=== PATIENT | female | born 1990 | race Hispanic/Latino ===

== ENCOUNTER 2019-01-10 16:48 | Observation (INO) | payer BC, SELFPAY ==
[2019-01-10] MEDS ORDERED: PROMETHAZINE 25 MG/ML VIAL ONE (17:13)
[2019-01-10] MEDS ORDERED: NA CHLORIDE 0.9% 1,000 ML ONE ×2 (17:14→17:51)
[2019-01-10] MEDS ORDERED: ONDANSETRON 4 MG/2 ML VIAL ONE ×2 (17:17→21:01)
[2019-01-10 17:22] LABS: Urine Blood 2+ (NEG); Urine Glucose NEGATIVE (NEG); Urine Protein 2+ (NEG); Urine pH 5.5 (5.0-7.0)
[2019-01-10 17:35] LABS: Absolute Lymphocytes (CBC) 1.2 K/uL (0.7-4.9); Basophils % 0.2 % (0-1.3); Hematocrit 39.4 % (36.0-45.0); Lymphocytes % 10.1 % (15.3-44.8); MPV 9.5 fL (7.6-11.3); RBC Red Blood Cell Count 4.93 M/uL (3.86-4.86)
[2019-01-10 18:05] LABS: BUN Blood Urea Nitrogen 6 mg/dL (7-18); Bicarbonate 23 mmol/L (21-32); Glucose Level 77 mg/dL (74-106); Sodium Level 133 mmol/L (136-145)
[2019-01-10 18:12] LABS: Potassium 2.7 mmol/L (3.5-5.1)
[2019-01-10] MEDS ORDERED: POTASSIUM 25 MEQ EFFERV TAB ONE (18:16)
[2019-01-10] MEDS ORDERED: KCL 20 MEQ/100 mL IVPB 20 MEQ/100 ML BAG IV ONE (18:17)
--- NOTE | 2019-01-10 18:46 | EDPHYS ---
Physician Documentation [facility] Name: Kourtney Zavala Age: 28 yrs Sex: Female : 1990 Arrival Date: 01/10/2019 Time: 16:50 Bed 16 Private MD: ED Physician Yuri Marcus HPI: 01/10 18:06 This 28 yrs old Female presents to ER via Ambulatory with complaints of pm1 Nausea/Vomiting - 10 wks 6 days preg. 18:06 The patient presents to the emergency department with nausea, vomiting. Onset: The pm1 symptoms/episode began/occurred 3 day(s) ago. Possible causes: . The symptoms are aggravated by food , The symptoms are alleviated by zofran, but does not have any. Associated signs and symptoms: Pertinent positives: nausea, vomiting, Pertinent negatives: abdominal pain, dysuria, fever, vaginal discharge. Severity of symptoms: in the emergency department the symptoms are worse Pain is currently a 0 / 10. The patient has not experienced similar symptoms in the past. 18:06 The patient has been recently seen by a physician: with similar presenting complaints, pm1 and apparently given a diagnosis of hypokalemia and hyperemesis gravidarum. Admitted and discharged home with Reglan. However Reglan does not help. Reports Phenergan ineffective also. . . [employer] HOOP NET: 17:09 LMP 06/2018 em Historical: - Allergies: 17:09 No Known Allergies; em - Home Meds: 17:09 None [Active]; em - PMHx: 17:09 None; em - PSHx: 17:09 right foot bone graft; em - Immunization history:: Adult Immunizations up to date. - Social history:: Smoking status: Patient/guardian denies using tobacco. - Ebola Screening: : Patient negative for fever greater than or equal to 101.5 degrees Fahrenheit, and additional compatible Ebola Virus Disease symptoms Patient denies exposure to infectious person Patient denies travel to an Ebola-affected area in the 21 days before illness onset No symptoms or risks identified at this time. ROS: 18:06 Constitutional: Negative for fever, chills, and weight loss, Eyes: Negative for injury, pm1 pain, redness, and discharge, ENT: Negative for injury, pain, and discharge, Neck: Negative for injury, pain, and swelling, Cardiovascular: Negative for chest pain, palpitations, and edema, Respiratory: Negative for shortness of breath, cough, wheezing, and pleuritic chest pain. 18:06 Back: Negative for injury and pain, : Negative for injury, bleeding, discharge, and swelling, MS/Extremity: Negative for injury and deformity, Skin: Negative for injury, rash, and discoloration, Neuro: Negative for headache, weakness, numbness, tingling, and seizure. 18:06 Abdomen/GI: Positive for abdominal pain, nausea and vomiting, Negative for diarrhea, constipation. Exam: 18:06 Constitutional: This is a well developed, well nourished patient who is awake, alert, pm1 and in no acute distress. Head/Face: Normocephalic, atraumatic. Neck: Trachea midline, no thyromegaly or masses palpated, and no cervical lymphadenopathy. Supple, full range of motion without nuchal rigidity, or vertebral point tenderness. No Meningismus. Chest/axilla: Normal chest wall appearance and motion. Nontender with no deformity. No lesions are appreciated. Cardiovascular: Regular rate and rhythm with a normal S1 and S2. No gallops, murmurs, or rubs. No pulse deficits. Respiratory: Lungs have equal breath sounds bilaterally, clear to auscultation and percussion. No rales, rhonchi or wheezes noted. No increased work of breathing, no retractions or nasal flaring. 18:06 Back: No spinal tenderness. No costovertebral tenderness. Full range of motion. Skin: Warm, dry with normal turgor. Normal color with no rashes, no lesions, and no evidence of cellulitis. MS/ Extremity: Pulses equal, no cyanosis. Neurovascular intact. Full, normal range of motion. 18:06 Abdomen/GI: Inspection: obese Bowel sounds: normal, Palpation: abdomen is soft and non-tender, in all quadrants, mass, is not appreciated, rebound tenderness, is not appreciated. 18:06 Neuro: Orientation: is normal, Motor: is normal, moves all fours, Gait: is steady, at a normal pace, without difficulty. Vital Signs: 17:09 BP 143 / 98; Pulse 97; Resp 18; Temp 98.7(O); Pulse Ox 98% on R/A; Weight 80.29 kg; em Height 5 ft. 1 in. (154.94 cm); Pain 0/10; 17:27 BP 136 / 77; em 18:10 BP 137 / 69; Pulse 83; Resp 18; Pulse Ox 99% on R/A; Pain 0/10; em 19:35 BP 136 / 81; Pulse 94; Resp 18; Pulse Ox 100% on R/A; wh 21:00 BP 135 / 82; Pulse 93; Resp 18; Pulse Ox 99% on R/A; wh 17:09 Body Mass Index 33.44 (80.29 kg, 154.94 cm) em MDM: 17:00 Patient medically screened. pm1 18:44 Data reviewed: vital signs. Data interpreted: Pulse oximetry: on room air is 99 %. pm1 Interpretation: normal. Counseling: I had a detailed discussion with the patient and/or guardian regarding: the historical points, exam findings, and any diagnostic results supporting the discharge/admit diagnosis, lab results, the need for further work-up and treatment in the hospital. 19:58 Physician consultation: Elton Coto MD was called at 18:41, was contacted at 19:58, pm1 regarding admission, patient's condition, and will see patient L\T\D tomorrow. Potassium replacement, Fluids, Potassium, Ambien 10 mg PO PRN for sleep, antiemetic, L\T\D floor. 21:09 ED course: 1/2 NS with KCL 20 mEq/L not available so changed to D5-1/2 NS with KCL 20 pm1 mEq/L at 125 ml/hr. 01/10 17:06 Order name: Basic Metabolic Panel; Complete Time: 18:22 pm1 01/10 17:06 Order name: CBC with Diff; Complete Time: 17:45 pm1 01/10 17:11 Order name: Urine Dipstick--Ancillary (enter results); Complete Time: 17:45 eb 01/10 17:11 Order name: Urine --Ancillary (enter results); Complete Time: 17:45 eb 01/10 17:06 Order name: IV Saline Lock; Complete Time: 17:26 pm1 01/10 17:06 Order name: Labs collected and sent; Complete Time: 17:26 pm1 01/10 17:06 Order name: NPO; Complete Time: 17:26 pm1 01/10 17:06 Order name: Urine Dipstick-Ancillary (obtain specimen); Complete Time: 17:26 pm1 01/10 17:07 Order name: PO challenge; Complete Time: 18:45 pm1 01/10 18:25 Order name: Heart Tones; Complete Time: 18:45 pm1 Administered Medications: 17:25 Drug: NS 0.9% 1000 ml Route: IV; Rate: 1000 ml; Site: left antecubital; em 17:26 Not Given (Other Intervention Used): Phenergan 12.5 mg IVP once ss 17:26 Drug: Zofran 4 mg Route: IVP; Site: left antecubital; ss 17:47 Follow up: Response: No adverse reaction; Nausea is decreased em 18:08 Drug: NS 0.9% 1000 ml Route: IV; Rate: 1000 ml; Site: left antecubital; em 18:24 Drug: Potassium Effervescent Tablet 50 mEq Route: PO; em 22:21 Follow up: Response: No adverse reaction wh 18:24 Drug: Potassium Chloride 20 mEq Route: IV; Rate: calculated rate; Site: left em antecubital; 21:08 Drug: Zofran 4 mg Route: IVP; Site: left antecubital; wh 22:21 Follow up: Response: No adverse reaction; Nausea is decreased wh 21:08 Not Given (Porvider changed order): NS 0.45 % with KCl 20 mEq/L 1000 ml IV at 125 ml/hr once 21:09 Drug: D5-1/2 NS with KCl 20 mEq/L 1000 ml Route: IV; Rate: 125 ml/hr; Site: left wh antecubital; Disposition: 01/11 15:36 Co-signature as Attending Physician, Yuri Marcus MD. Disposition: 01/10/19 18:45 Hospitalization ordered by Elton Coto for Observation. Preliminary diagnosis are Hyperemesis gravidarum with metabolic disturbance, Hypokalemia. - Bed [facility] for [facility]. - Status is Observation. bb - Condition is Stable. - Problem is new. - Symptoms have improved. UTI on Admission? No Signatures: Dispatcher [employer] Barb Horne RN RN dw Beni Segundo, ELECTRONIC NEWS GATHERING [employer]ERA PERSON ELECTRONIC NEWS GATHERING [employer]ER[employer] PERSON em Robyn Waldron RN RN bb Smirch, Shelby, RN RN ss Lloyd Caraballo, DIRECTOR OF GRADUATE MEDICAL EDUCATION DIRECTOR OF GRADUATE MEDICAL EDUCATION pm1 Keiry Calvert Gregory, MD MD gs Corrections: (The following items were deleted from the chart) 01/10 20:39 18:45 Hospitalization Ordered by Elton Coto MD for Observation. Preliminary dw diagnosis is Hyperemesis gravidarum with metabolic disturbance; Hypokalemia. Bed requested for Telemetry/MedSurg (observation). Status is Observation. Condition is Stable. Problem is new. Symptoms have improved. UTI on Admission? No. pm1 21:59 20:39 01/10/2019 18:45 Hospitalization Ordered by Elton Coto MD for Observation. bb Preliminary diagnosis is Hyperemesis gravidarum with metabolic disturbance; Hypokalemia. Bed requested for [facility]. Status is Observation. Condition is Stable. Problem is new. Symptoms have improved. UTI on Admission? No. dw
--- NOTE | 2019-01-10 18:46 | ER ---
Nurse's Notes [facility] Name: Kourtney Zavala Age: 28 yrs Sex: Female : 1990 Arrival Date: 01/10/2019 Time: 16:50 Bed 16 Private MD: Diagnosis: Hyperemesis gravidarum with metabolic disturbance;Hypokalemia Presentation: 01/10 17:07 Presenting complaint: Patient states: N/V since Sunday, was seen at [facility] and em admitted, discharged with Phenergan and Reglan but has not helped, denies ABD cramping, vaginal bleeding or discharge. Transition of care: patient was not received from another setting of care. Onset of symptoms was January 07, 2019. Risk Assessment: Do you want to hurt yourself or someone else? Patient reports no desire to harm self or others. Initial Sepsis Screen: Does the patient meet any 2 criteria? No. Patient's initial sepsis screen is negative. Does the patient have a suspected source of infection? No. Patient's initial sepsis screen is negative. Care prior to arrival: None. 17:07 Method Of Arrival: Ambulatory em 17:09 Acuity: SONIA 3 ss MAT TESTER: 17:09 LMP 06/2018 em Historical: - Allergies: 17:09 No Known Allergies; em - Home Meds: 17:09 None [Active]; em - PMHx: 17:09 None; em - PSHx: 17:09 right foot bone graft; em - Immunization history:: Adult Immunizations up to date. - Social history:: Smoking status: Patient/guardian denies using tobacco. - Ebola Screening: : Patient negative for fever greater than or equal to 101.5 degrees Fahrenheit, and additional compatible Ebola Virus Disease symptoms Patient denies exposure to infectious person Patient denies travel to an Ebola-affected area in the 21 days before illness onset No symptoms or risks identified at this time. Screenin:09 Abuse screen: Denies threats or abuse. Denies injuries from another. Nutritional ss screening: No deficits noted. Tuberculosis screening: Never had TB. Fall Risk None identified. Assessment: 17:08 General: Appears in no apparent distress. comfortable, Behavior is calm, cooperative, em Denies fever. Pain: Denies pain. Neuro: Level of Consciousness is awake, alert, obeys commands, Oriented to person, place, time, situation, Appropriate for age. Cardiovascular: Capillary refill < 3 seconds Patient's skin is warm and dry. Respiratory: Airway is patent Respiratory effort is even, unlabored, Respiratory pattern is regular, symmetrical. GI: Abdomen is flat, Bowel sounds present X 4 quads. Abd is soft X 4 quads Abdomen is tender to palpation in right lower quadrant and left lower quadrant Reports nausea, vomiting, Patient currently denies diarrhea. : Denies burning with urination, discharge, vaginal bleeding. Derm: Skin is intact, is healthy with good turgor, Skin is pink, warm \T\ dry. Musculoskeletal: Capillary refill < 3 seconds, Range of motion: intact in all extremities. 17:12 General: The previous assessment is accurate, call light remains within reach. 17:22 Reassessment: reports IV Phenergan does not help, provider notified, received new em orders for IV zofran. 17:50 Reassessment: Patient appears in no apparent distress at this time. Patient and/or em family updated on plan of care and expected duration. Pain level reassessed. Patient is alert, oriented x 3, equal unlabored respirations, skin warm/dry/pink. Patient states feeling better. Patient states symptoms have improved. 18:46 Reassessment: Patient appears in no apparent distress at this time. Patient and/or em family updated on plan of care and expected duration. Pain level reassessed. Patient is alert, oriented x 3, equal unlabored respirations, skin warm/dry/pink. unable to locate FHT's, provider notified, will attempt with US, tolerating PO potassium. 19:35 Reassessment: Patient appears in no apparent distress at this time. Patient and/or wh family updated on plan of care and expected duration. Pain level reassessed. Patient is alert, oriented x 3, equal unlabored respirations, skin warm/dry/pink. 20:30 Reassessment: Patient appears in no apparent distress at this time. No changes from previously documented assessment. Patient and/or family updated on plan of care and expected duration. Pain level reassessed. Patient is alert, oriented x 3, equal unlabored respirations, skin warm/dry/pink. 21:40 Reassessment: Patient appears in no apparent distress at this time. No changes from previously documented assessment. Patient and/or family updated on plan of care and expected duration. Pain level reassessed. Patient is alert, oriented x 3, equal unlabored respirations, skin warm/dry/pink. Vital Signs: 17:09 BP 143 / 98; Pulse 97; Resp 18; Temp 98.7(O); Pulse Ox 98% on R/A; Weight 80.29 kg; em Height 5 ft. 1 in. (154.94 cm); Pain 0/10; 17:27 BP 136 / 77; em 18:10 BP 137 / 69; Pulse 83; Resp 18; Pulse Ox 99% on R/A; Pain 0/10; em 19:35 BP 136 / 81; Pulse 94; Resp 18; Pulse Ox 100% on R/A; wh 21:00 BP 135 / 82; Pulse 93; Resp 18; Pulse Ox 99% on R/A; wh 17:09 Body Mass Index 33.44 (80.29 kg, 154.94 cm) em ED Course: 16:50 Patient arrived in ED. as 17:00 Lloyd Caraballo NP is PHCP. pm1 17:00 Yuri Marcus MD is Attending Physician. pm1 17:07 Beni Segundo LVN is Primary Nurse. em 17:09 Triage completed. ss 17:09 Patient has correct armband on for positive identification. Bed in low position. Call ss light in reach. 17:09 Arm band placed on. em 17:25 Initial lab(s) drawn, by fl, sent to lab. Inserted saline lock: 20 gauge in left em antecubital area, using aseptic technique. Blood collected. 18:45 Elton Coto MD is Hospitalizing Provider. pm1 20:54 No provider procedures requiring assistance completed. Patient admitted, IV remains in place. Administered Medications: 17:25 Drug: NS 0.9% 1000 ml Route: IV; Rate: 1000 ml; Site: left antecubital; em 17:26 Not Given (Other Intervention Used): Phenergan 12.5 mg IVP once ss 17:26 Drug: Zofran 4 mg Route: IVP; Site: left antecubital; ss 17:47 Follow up: Response: No adverse reaction; Nausea is decreased em 18:08 Drug: NS 0.9% 1000 ml Route: IV; Rate: 1000 ml; Site: left antecubital; em 18:24 Drug: Potassium Effervescent Tablet 50 mEq Route: PO; em 22:21 Follow up: Response: No adverse reaction 18:24 Drug: Potassium Chloride 20 mEq Route: IV; Rate: calculated rate; Site: left em antecubital; 21:08 Drug: Zofran 4 mg Route: IVP; Site: left antecubital; 22:21 Follow up: Response: No adverse reaction; Nausea is decreased 21:08 Not Given (Porvider changed order): NS 0.45 % with KCl 20 mEq/L 1000 ml IV at 125 ml/hr once 21:09 Drug: D5-1/2 NS with KCl 20 mEq/L 1000 ml Route: IV; Rate: 125 ml/hr; Site: left wh antecubital; Outcome: 18:45 Decision to Hospitalize by Provider. pm1 21:40 Admitted to L \T\ D, accompanied by tech, family with patient, via wheelchair, room 270, with chart, Report called to Colleen Duncan RN 21:40 Condition: stable 21:40 Instructed on the need for admit. 21:59 Patient left the ED. bb Signatures: Beni Segundo, TESTER SOUND TESTER SOUND Nadege Baker Brenda, RN RN bb Smirch, Shelby, RN RN ss Marinas, Patrick, NP VOLUNTEER SERVICES MANAGER pm1 Keiry Calvert
[2019-01-10] MEDS ORDERED: NA CHLORIDE 0.9% 250 ML ONE (19:38)
[2019-01-10] MEDS ORDERED: D5 0.2 NS 0 ML IV ONE (21:03)
[2019-01-10] MEDS ORDERED: D5.45NS W/KCL 20MEQ 1,000 ML IV ONE (21:04)
[2019-01-10] MEDS ORDERED: ZOLPIDEM TARTRATE 5 MG TABLET PO PRN (21:47)
[2019-01-10] MEDS ORDERED: D5.45NS W/KCL 20MEQ 20 MEQ/1,000 ML BAG IV SCH (22:00)
[2019-01-10 22:48] VITALS: O2SAT 100
[2019-01-10 22:57] VITALS: BMI 30.4
[2019-01-11] MEDS: ONDANSETRON 4 MG/2 ML VIAL IV PRN ×2 (01:10→05:15)
[2019-01-11 06:22] LABS: Absolute Lymphocytes (CBC) 2.3 K/uL (0.7-4.9); Basophils % 0.4 % (0-1.3); Hematocrit 34.3 % (36.0-45.0); Lymphocytes % 25.9 % (15.3-44.8); MPV 9.8 fL (7.6-11.3); RBC Red Blood Cell Count 4.24 M/uL (3.86-4.86)
[2019-01-11 06:39] LABS: BUN Blood Urea Nitrogen 2 mg/dL (7-18); Bicarbonate 23 mmol/L (21-32); Glucose Level 106 mg/dL (74-106); Potassium 3.1 mmol/L (3.5-5.1); Sodium Level 137 mmol/L (136-145)
[2019-01-11 09:08] VITALS: BP 144/74; TEMP 99.5
--- NOTE | 2019-01-16 10:14 | DS ---
Date of Discharge: 01/11/2019 Summary: Patient was admitted for hyperemesis gravidarum. She was given Zofran which she takes hers elf and helps more than anything else. She has not vomited since then and this morning states she is hungry. We are in the process of correcting her hypokalemia. She knows to continue medicines that she can get over the counter at home that will supplement her potassium. We will give her Zofran pre scription, this has multiple refills and she is to follow up with Dr. Baker on Sunday at [facility]. Final Diagnosis: Hyperemesis gravidarum, 11 weeks . CARLOS/RODOLFO Voice ID: [id number] Report ID: [id number]
--- NOTE | 2019-01-16 10:17 | PREOPHP ---
Date of Admission: 01/10/2019 History Of Present Illness: This 28-year-old 2, para 1, seen in the emergency room for hyper emesis gravidarum. Patient states she had the same problem with the first but not this sev ere. Has tried promethazine in the past without good results, was even placed on Reglan and has not had any success with that either, says Zofran is the best thing that helps her. She was given Zofran and has had no vomiting since then. Says she is very hungry this morning. Past Medical History: Really noncontributory. Physical Examination: Completely normal. Allergies: SHE HAS NO ALLERGIES. Laboratory Data: Her potassium level was low on admission, it is still low but is improving. We will keep the patient on Zofran. She knows that there is orally administered potassium supplement s plus potassium containing foods that we discussed. Patient will be dismissed with her prescription and she is to follow up with Dr. Baker in the [facility] on Sunday. Full discussion about foods that will stay down and other type of measures she can take to reduce the hyperemesis. CARLOS/RODOLFO Voice ID: [id number]
--- NOTE | 2019-01-16 10:32 | PREOPHP ---
Date of Admission: 01/10/2019 This is a 28-year-old female, admitted through the emergency room with hyperemesis gravidarum and hyp okalemia. Patient had the same problem with her first but not as severe. She has really n ot seen any physician yet, plans to go to [facility]. Family History: Noncontributory. Allergies: SHE HAS NO ALLERGIES. Physical Examination: All stable. Vital Signs: Blood pressures are normal. HEENT: Clear. Pupils equal, round, and reactive to light and accommodation. Conjunctivae well perf used. No oral, lingual, or buccal lesions. Chest and Lungs: Basically clear. Breasts: Not examined. Extremities: Clear. Pelvic: No pelvic exam was done. Patient has had no bleeding, or major cramping. She basically loo ks fine other than the fact that she is mildly dehydrated. We will hydrate her, correct the hypokale amish and then she will follow up with [facility]. Diagnoses: Hyperemesis gravidarum approximately 11 weeks gestation. Admit for hydration and correct ion of hypokalemia. JENNIFERC/MODL Voice ID: [id number]
--- OUTSIDE RECORDS SUMMARY | 2019-02-02 02:51 | XMS REPORT ---
:1990 [facility] Address [address] [place] [address] [place] [id number] Care Team Providers Name Role Phone Unavailable Unavailable Unavailable Problems This patient has no known problems. Allergies, Adverse Reactions, Alerts This patient has no known allergies or adverse reactions. Medications This patient has no known medications.
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
== END 2019-01-11 07:50 | disposition home or self-care (01) ==
LOC: ER 16:48 → ERHOLD 20:10 → 2ND-WC 20:57
PROVIDERS: ADMIT Specialist; ATTEND Specialist
DX: O21.1 Hyperemesis gravidarum with metabolic disturbance (principal); Z3A.11 11 weeks gestation of pregnancy
CPT/HCPCS: 36415; 80048; 81003; 81025; 85025; 96374; 96375; 99285; G0378; J2405; J2550; J7030

== ENCOUNTER 2019-02-18 20:53 | Emergency (ER) | payer SELFPAY ==
--- OUTSIDE RECORDS SUMMARY | 2019-02-18 20:55 | XMS REPORT ---
:1990 [facility] Address [address] [place] [address] Dr. Mont[address]ay[address] [place] [id number] Care Team Providers Name Role Phone Unavailable Unavailable Unavailable Problems This patient has no known problems. Allergies, Adverse Reactions, Alerts This patient has no known allergies or adverse reactions. Medications This patient has no known medications.
[2019-02-18] MEDS ORDERED: NA CHLORIDE 0.9% 100 ML IV ONE (21:51)
--- NOTE | 2019-02-18 21:52 | RAD REPORT ---
EXAM DESCRIPTION: US - OB Limited - 02/18/2019 9:37 pm CLINICAL HISTORY: ABD CRAMPING, COMPARISON: None. TECHNIQUE: Transabdominal pelvic sonography performed. FINDINGS: No intrauterine tissue identified. Gestation sac is present. Cyst-like cluster of ti ssue is identified along the posterior and fundal portion of the gestational sac in appearance typica l for molar . Cervical canal appears closed. The molar tissue does appear to overlie the int ernal os. No tissue identified. Neither ovary was clearly identifiable. Bowel gas obscures the ovaries. No free fluid in the cul de s ac. Findings telephoned to the referring clinician 9:45 p.m. IMPRESSION: Complete molar . No tissue identified. Correlation can be made with bHCG value. Molar tissue overlies the closed internal os.
[2019-02-18 22:08] LABS: Urine Blood 1+ (NEG); Urine Glucose NEGATIVE (NEG); Urine Protein NEGATIVE (NEG); Urine Specific Gravity <1.005 (1.005-1.030)
[2019-02-18 22:20] LABS: Absolute Lymphocytes (CBC) 1.7 K/uL (0.7-4.9); Basophils % 0.2 % (0-1.3); Hematocrit 36.3 % (36.0-45.0); Lymphocytes % 15.6 % (15.3-44.8); RBC Red Blood Cell Count 4.49 M/uL (3.86-4.86)
[2019-02-18 22:48] LABS: BUN Blood Urea Nitrogen 6 mg/dL (7-18); Bicarbonate 27 mmol/L (21-32); Glucose Level 126 mg/dL (74-106); HCG, Quantitative 8240 mIU/mL (1-3); Potassium 3.3 mmol/L (3.5-5.1); Sodium Level 140 mmol/L (136-145)
--- NOTE | 2019-02-18 23:49 | EDPHYS ---
Physician Documentation [facility] Name: Kourtney Zavala Age: 28 yrs Sex: Female : 1990 Arrival Date: 02/18/2019 Time: 20:57 Bed 5 Private MD: ED Physician Alvaro Renee HPI: 02/18 23:33 This 28 yrs old Female presents to ER via Ambulatory with complaints of snw Vaginal Bleeding. 23:33 The patient presents with vaginal bleeding that is light, with clots. Onset: The snw symptoms/episode began/occurred suddenly, just prior to arrival. Associated signs and symptoms: The patient has no apparent associated signs or symptoms. Severity of symptoms: At their worst the symptoms were mild, in the emergency department the symptoms are unchanged. The patient has not experienced similar symptoms in the past. pt was awaiting medicaid prior to getting a Doctor. 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 - Social history:: Smoking status: Patient/guardian denies using tobacco. - Ebola Screening: : No symptoms or risks identified at this time. ROS: 23:30 Constitutional: Negative for fever, chills, and weight loss, Eyes: Negative for injury, snw pain, redness, and discharge, ENT: Negative for injury, pain, and discharge, Neck: Negative for injury, pain, and swelling, Cardiovascular: Negative for chest pain, palpitations, and edema, Respiratory: Negative for shortness of breath, cough, wheezing, and pleuritic chest pain, Abdomen/GI: Negative for abdominal pain, nausea, vomiting, diarrhea, and constipation, Back: Negative for injury and pain, MS/Extremity: Negative for injury and deformity, Skin: Negative for injury, rash, and discoloration, Neuro: Negative for headache, weakness, numbness, tingling, and seizure. 23:30 : Positive for vaginal bleeding. Exam: 23:30 Constitutional: This is a well developed, well nourished patient who is awake, alert, snw and in no acute distress. Head/Face: Normocephalic, atraumatic. Eyes: Pupils equal round and reactive to light, extra-ocular motions intact. Lids and lashes normal. Conjunctiva and sclera are non-icteric and not injected. Cornea within normal limits. Periorbital areas with no swelling, redness, or edema. ENT: Nares patent. No nasal discharge, no septal abnormalities noted. Tympanic membranes are normal and external auditory canals are clear. Oropharynx with no redness, swelling, or masses, exudates, or evidence of obstruction, uvula midline. Mucous membranes moist. Neck: Trachea midline, no thyromegaly or masses palpated, and no cervical lymphadenopathy. Supple, full range of motion without nuchal rigidity, or vertebral point tenderness. No Meningismus. Chest/axilla: Normal chest wall appearance and motion. Nontender with no deformity. No lesions are appreciated. Cardiovascular: Regular rate and rhythm with a normal S1 and S2. No gallops, murmurs, or rubs. Normal PMI, no JVD. No pulse deficits. Respiratory: Lungs have equal breath sounds bilaterally, clear to auscultation and percussion. No rales, rhonchi or wheezes noted. No increased work of breathing, no retractions or nasal flaring. Abdomen/GI: Soft, non-tender, with normal bowel sounds. No distension or tympany. No guarding or rebound. No evidence of tenderness throughout. Back: No spinal tenderness. No costovertebral tenderness. Full range of motion. Skin: Warm, dry with normal turgor. Normal color with no rashes, no lesions, and no evidence of cellulitis. MS/ Extremity: Pulses equal, no cyanosis. Neurovascular intact. Full, normal range of motion. Neuro: Awake and alert, GCS 15, oriented to person, place, time, and situation. Cranial nerves II-XII grossly intact. Motor strength 5/5 in all extremities. Sensory grossly intact. Cerebellar exam normal. Normal gait. Psych: Awake, alert, with orientation to person, place and time. Behavior, mood, and affect are within normal limits. Vital Signs: 21:01 BP 147 / 84; Pulse 97; Resp 18; Temp 98.7(O); Pulse Ox 99% on R/A; Weight 78.02 kg (R); ak1 Height 5 ft. 1 in. (154.94 cm) (R); Pain 0/10; 21:26 BP 114 / 63; Pulse 92; Resp 18; Pulse Ox 99% on R/A; ak1 22:02 BP 117 / 67; Pulse 84; Resp 18; Pulse Ox 98% on R/A; ak1 23:05 BP 112 / 63; Pulse 86; Resp 18; Temp 98.6; Pulse Ox 100% on R/A; Pain 0/10; ak1 21:01 Body Mass Index 32.50 (78.02 kg, 154.94 cm) ak1 MDM: 20:57 Patient medically screened. snw 23:42 Data reviewed: vital signs, nurses notes. Data interpreted: Pulse oximetry: on room air snw is 100 %. Interpretation: normal. Counseling: I had a detailed discussion with the patient and/or guardian regarding: the historical points, exam findings, and any diagnostic results supporting the discharge/admit diagnosis, lab results, radiology results, the need for outpatient follow up, to return to the emergency department if symptoms worsen or persist or if there are any questions or concerns that arise at home. Response to treatment: There is no appreciated change of the patient's symptoms at this time. Physician consultation: Dr Garcia was called at 23:44, was contacted at 23:44, regarding regarding transfer, to [facility]. kindly agrees to follow pt in the [facility]. 02/18 21:48 Order name: Quantitative Hcg; Complete Time: 22:56 snw 02/18 21:48 Order name: Abo/rh Typing; Complete Time: 22:56 snw 02/18 21:00 Order name: US OB Limited; Complete Time: 22:00 fc 02/18 21:48 Order name: Basic Metabolic Panel; Complete Time: 22:56 snw 02/18 21:48 Order name: CBC with Diff; Complete Time: 22:23 snw 02/18 22:00 Order name: Urine Dipstick--Ancillary (enter results); Complete Time: 22:12 mw2 02/18 21:48 Order name: IV Saline Lock; Complete Time: 22:05 snw 02/18 21:48 Order name: Labs collected and sent; Complete Time: 22:05 snw 02/18 21:48 Order name: NPO; Complete Time: 22:03 snw 02/18 21:48 Order name: Urine Dipstick-Ancillary (obtain specimen); Complete Time: 22:02 snw Administered Medications: 21:58 Drug: NS 0.9% 1000 ml Route: IV; Rate: 125 ml/hr; Site: right antecubital; ao 02/19 00:24 Follow up: IV Status: Order to discontinue infusion ak1 Disposition: 06:37 Co-signature as Attending Physician, Alvaro Renee MD I agree with the assessment and cornel plan of care. Disposition: 02/18/19 23:48 Discharged to Home. Impression: Hydatidiform mole. - Condition is Stable. - Discharge Instructions: Molar . - Medication Reconciliation Form, Thank You Letter, Antibiotic Education, Prescription Opioid Use form. - Follow up: Private Physician; When: 1 - 2 days; Reason: Recheck today's complaints, Continuance of care. Follow up: Emergency Department; When: As needed; Reason: Severe bleeding. - Notes: Please contact the access department at [facility] on the 7th floor at [phone] for an appointment Signatures: Dispatcher [employer] EDAlvaro Vanegas MD MD cha Therrien, Shelly, AVP-C AVP-Csnw Melany Bhatti RN KRISTIAN ak1 Marcus Youngblood RN RN ao Corrections: (The following items were deleted from the chart) 00:29 02/18 23:48 02/18/2019 23:48 Discharged to Home. Impression: Hydatidiform mole. ak1 Condition is Stable. Forms are Medication Reconciliation Form, Thank You Letter, Antibiotic Education, Prescription Opioid Use. Follow up: Private Physician; When: 1 - 2 days; Reason: Recheck today's complaints, Continuance of care. Follow up: Emergency Department; When: As needed; Reason: Severe bleeding. snw
--- NOTE | 2019-02-18 23:49 | ER ---
Nurse's Notes [facility] Name: Kourtney Zavala Age: 28 yrs Sex: Female : 1990 Arrival Date: 02/18/2019 Time: 20:57 Bed 5 Private MD: Diagnosis: Hydatidiform mole Presentation: 02/18 20:59 Presenting complaint: Patient states: vaginal bleeding with clots when she wiped at ak1 2039. Transition of care: patient was not received from another setting of care. Onset of symptoms was February 18, 2019. Risk Assessment: Do you want to hurt yourself or someone else? Patient reports no desire to harm self or others. Initial Sepsis Screen: Does the patient meet any 2 criteria? No. Patient's initial sepsis screen is negative. Does the patient have a suspected source of infection? No. Patient's initial sepsis screen is negative. Care prior to arrival: None. 20:59 Method Of Arrival: Ambulatory ak1 20:59 Acuity: SONIA 3 ak1 Triage Assessment: 21:01 General: Appears in no apparent distress. Behavior is cooperative, appropriate for age. ak1 Pain: Denies pain. 21:11 EENT: No signs and/or symptoms were reported regarding the EENT system. Neuro: Level of ak1 Consciousness is awake, alert, obeys commands, Oriented to person, place, time, situation, Appropriate for age Moves all extremities. Full function. Cardiovascular: No deficits noted. Respiratory: Airway is patent Respiratory effort is even, unlabored, Respiratory pattern is regular, symmetrical, Breath sounds are clear bilaterally. GI: No signs and/or symptoms were reported involving the gastrointestinal system. : Reports vaginal bleeding that is bright red, with clots, spotty, since 2039 while eating dinner. pt denies heavy lifting except the 20 pound 12 month old son. pt denies sexual intercourse today. Derm: No signs and/or symptoms reported regarding the dermatologic system. Musculoskeletal: No signs and/or symptoms reported regarding the musculoskeletal system. 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 - Social history:: Smoking status: Patient/guardian denies using tobacco. - Ebola Screening: : No symptoms or risks identified at this time. Screenin:02 Abuse screen: Denies threats or abuse. Denies injuries from another. Nutritional ak1 screening: No deficits noted. Tuberculosis screening: No symptoms or risk factors identified. Fall Risk None identified. Assessment: 21:12 Reassessment: pt reassured to stay calm. this is pt's second . pt has not had ak1 care for this yet. General: Appears in no apparent distress. Behavior is anxious. 21:26 Reassessment: US at bedside. ak1 23:05 Reassessment: Patient appears in no apparent distress at this time. No changes from ak1 previously documented assessment. Patient and/or family updated on plan of care and expected duration. Pain level reassessed. Patient is alert, oriented x 3, equal unlabored respirations, skin warm/dry/pink. Patient denies pain at this time. Vital Signs: 21:01 BP 147 / 84; Pulse 97; Resp 18; Temp 98.7(O); Pulse Ox 99% on R/A; Weight 78.02 kg (R); ak1 Height 5 ft. 1 in. (154.94 cm) (R); Pain 0/10; 21:26 BP 114 / 63; Pulse 92; Resp 18; Pulse Ox 99% on R/A; ak1 22:02 BP 117 / 67; Pulse 84; Resp 18; Pulse Ox 98% on R/A; ak1 23:05 BP 112 / 63; Pulse 86; Resp 18; Temp 98.6; Pulse Ox 100% on R/A; Pain 0/10; ak1 21:01 Body Mass Index 32.50 (78.02 kg, 154.94 cm) ak1 ED Course: 20:57 Patient arrived in ED. lp1 20:57 Marcus Youngblood, KRISTIAN is Primary Nurse. ao 20:57 Chelsea Griffith FNP-C is PHCP. snw 20:57 lAvaro Renee MD is Attending Physician. snw 21:00 Triage completed. ak1 21:01 Arm band placed on Patient placed in an exam room, on a stretcher, Patient notified of ak1 wait time. Urine obtained. 21:02 Patient has correct armband on for positive identification. Bed in low position. Call ak1 light in reach. Pulse ox on. NIBP on. 21:13 Primary Nurse role handed off by Marcus Youngblood, KRISTIAN ak1 21:13 Melany Bhatti, RN is Primary Nurse. ak1 21:37 US OB Limited In Process Unspecified. EDMS 22:05 Inserted saline lock: 20 gauge in right antecubital area, using aseptic technique. ao Blood collected. 23:06 No provider procedures requiring assistance completed. Patient transferred, IV remains ak1 in place. Administered Medications: 21:58 Drug: NS 0.9% 1000 ml Route: IV; Rate: 125 ml/hr; Site: right antecubital; ao 02/19 00:24 Follow up: IV Status: Order to discontinue infusion ak1 Outcome: 02/18 23:48 Discharge ordered by . snw 02/19 00:24 Discharged to home ambulatory, with family. ak1 Condition: good Discharge instructions given to patient, Instructed on discharge instructions, follow up and referral plans. Demonstrated understanding of instructions, follow-up care. 00:29 Patient left the ED. ak1 Signatures: Dispatcher [employer] EDME Chelsea Griffith, ROSSI-C MALTED MILK MIXER-Csnw Jewels Dias RN RN 1 Melany Bhatti, RN RN ak Marcus Youngblood, KRISTIAN TOWNSEND ao
[2019-02-19 01:49] VITALS: TEMP 98.6; O2SAT 100
[2019-02-21 02:02] VITALS: BP 106/73
== END 2019-02-19 00:29 | disposition home or self-care (01) ==
LOC: ER 20:53
DX: O01.9 Hydatidiform mole, unspecified (principal)
CPT/HCPCS: 36415; 76815; 80048; 81003; 84702; 85025; 86900; 86901; 96360; 96361; 99284

== ENCOUNTER 2019-02-24 05:10 | Emergency (ER) | payer OTHER, SELFPAY ==
--- OUTSIDE RECORDS SUMMARY | 2019-02-24 05:12 | XMS REPORT ---
:1990 [facility] Address [address] [place] [address] Dr. Montemayor [address] [place] [address] Care Team Providers Name Role Phone Unavailable Unavailable Unavailable Problems This patient has no known problems. Allergies, Adverse Reactions, Alerts This patient has no known allergies or adverse reactions. Medications This patient has no known medications.
--- NOTE | 2019-02-24 05:38 | ER ---
Nurse's Notes [facility] Name: Kourtney Zavala Age: 28 yrs Sex: Female : 1990 Arrival Date: 02/24/2019 Time: 05:11 Bed 14 Private MD: Diagnosis: Abnormal uterine and vaginal bleeding, unspecified Presentation: 02/24 05:24 Presenting complaint: Patient states: Has had vaginal bleeding since last Sunday when lp1 diagnosed with molar ; States bleeding became more severe about 0400 this AM, passing large clots; Scheduled for D\T\C at 0700 today at [facility]. Transition of care: patient was not received from another setting of care. Onset of symptoms was February 24, 2019 at 04:00. Risk Assessment: Do you want to hurt yourself or someone else? Patient reports no desire to harm self or others. Initial Sepsis Screen: Does the patient meet any 2 criteria? No. Patient's initial sepsis screen is negative. Does the patient have a suspected source of infection? No. Patient's initial sepsis screen is negative. Care prior to arrival: None. 05:24 Method Of Arrival: Ambulatory lp1 05:24 Acuity: SONIA 3 lp1 Triage Assessment: 05:35 General: Appears in no apparent distress. Behavior is appropriate for age. Pain: lp1 Complains of pain in suprapubic area Pain currently is 10 out of 10 on a pain scale. Quality of pain is described as crampy. Neuro: Level of Consciousness is awake, alert, obeys commands. Cardiovascular: Patient's skin is warm and dry. Respiratory: Respiratory effort is even, unlabored. : Reports vaginal bleeding that is bright red, with clots. Derm: Skin is pink, warm \T\ dry. 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 - Social history:: Smoking status: Patient/guardian denies using tobacco. - Ebola Screening: : No symptoms or risks identified at this time. Screenin:30 Abuse screen: Denies threats or abuse. Denies injuries from another. Nutritional lp1 screening: No deficits noted. Tuberculosis screening: No symptoms or risk factors identified. Fall Risk None identified. Assessment: 05:32 Reassessment: Pt and spouse discussed options and decided to go ahead and go to pt's bb appointment at [facility] this morning at 0700. Vital Signs: 05:29 BP 131 / 64; Pulse 73; Resp 18; Temp 98.1(O); Pulse Ox 100% on R/A; Weight 77.11 kg; lp1 Height 5 ft. 1 in. (154.94 cm); Pain 10/10; 05:29 Body Mass Index 32.12 (77.11 kg, 154.94 cm) lp1 ED Course: 05:11 Patient arrived in ED. ds1 05:16 Jewels Dias, RN is Primary Nurse. lp1 05:28 Triage completed. lp1 05:29 Arm band placed on. lp1 05:30 Patient has correct armband on for positive identification. lp1 05:36 Laz Moffett MD is Attending Physician. tw4 05:36 No provider procedures requiring assistance completed. Patient did not have IV access lp1 during this emergency room visit. Administered Medications: No medications were administered Outcome: 05:36 AMA AMA form signed lp1 05:36 Condition: stable 05:42 Patient left the ED. lp1 Signatures: Polly Patrick ds1 Robyn Waldron RN RN bb Jewels Dias RN RN lp1 Laz Moffett MD MD tw4
--- NOTE | 2019-02-24 05:38 | EDPHYS ---
Physician Documentation [facility] Name: Kourtney Zavala Age: 28 yrs Sex: Female : 1990 Arrival Date: 02/24/2019 Time: 05:11 Bed 14 Private MD: ED Physician Laz Moffett HPI: 02/24 05:36 This 28 yrs old Female presents to ER via Ambulatory with complaints of tw4 Vaginal Bleeding - 16 wks preg, Abdominal Pain. 05:36 The patient presents with vaginal bleeding that is. Onset: The symptoms/episode tw4 began/occurred today. Modifying factors: The symptoms are alleviated by nothing, the symptoms are aggravated by nothing. Associated signs and symptoms: The patient has no apparent associated signs or symptoms. Severity of symptoms: At their worst the symptoms were moderate, in the emergency department the symptoms are unchanged. The patient has not experienced similar symptoms in the past. 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 - Social history:: Smoking status: Patient/guardian denies using tobacco. - Ebola Screening: : No symptoms or risks identified at this time. ROS: 05:36 Positive for vaginal bleeding, Negative for injury or acute deformity, urinary tw4 symptoms, urinary frequency, hematuria, pelvic pain, flank pain, burning with urination, difficulty urinating, bladder incontinence, foul smelling urine, vaginal itching, menstrual abnormality, missed period. 05:36 Constitutional: Negative for fever, chills, and weight loss, Eyes: Negative for injury, pain, redness, and discharge, Cardiovascular: Negative for chest pain, palpitations, and edema, Respiratory: Negative for shortness of breath, cough, wheezing, and pleuritic chest pain, Abdomen/GI: Negative for abdominal pain, nausea, vomiting, diarrhea, and constipation, Back: Negative for injury and pain, MS/Extremity: Negative for injury and deformity, Skin: Negative for injury, rash, and discoloration, Neuro: Negative for headache, weakness, numbness, tingling, and seizure. Vital Signs: 05:29 BP 131 / 64; Pulse 73; Resp 18; Temp 98.1(O); Pulse Ox 100% on R/A; Weight 77.11 kg; lp1 Height 5 ft. 1 in. (154.94 cm); Pain 10/10; 05:29 Body Mass Index 32.12 (77.11 kg, 154.94 cm) lp1 MDM: 05:36 Patient medically screened. tw4 02/24 05:28 Order name: CBC with Diff lp1 Administered Medications: No medications were administered Disposition: 02/24/19 05:37 Patient has left against medical advice. Impression: Abnormal uterine and vaginal bleeding, unspecified. - Patients states they are going to Home. - Condition is Stable. - Discharge Instructions: Abnormal Uterine Bleeding, Molar . Follow up: Private Physician; When: Upon discharge from the Emergency Department; Reason: Recheck today's complaints, Continuance of care. - Problem is new. - Symptoms have improved. Signatures: Dispatcher [employer] EDJewels Becerra RN RN lp1 Laz Moffett MD MD tw4 Corrections: (The following items were deleted from the chart) 05:42 05:37 02/24/2019 05:37 Patients has left against medical advice. Impression: Abnormal lp1 uterine and vaginal bleeding, unspecified. Patient states they are going to Home. Condition is Stable. Follow up: Private Physician; When: Upon discharge from the Emergency Department; Reason: Recheck today's complaints, Continuance of care. Problem is new. Symptoms have improved. tw4
[2019-02-24 05:48] VITALS: BP 131/64; TEMP 98.1; O2SAT 100
== END 2019-02-24 05:42 | disposition left against medical advice (07) ==
LOC: ER 05:10
DX: O46.92 Antepartum hemorrhage, unspecified, second trimester (principal); Z3A.00 Weeks of gestation of pregnancy not specified
CPT/HCPCS: 99281